=== PATIENT | female | born 1970 | race Caucasian/White ===

== ENCOUNTER → 2017-11-29 | Outpatient (CLI) | payer OTHER ==
[~2017-11-29] MED LIST: HYDR-3237 PO; MELO15TA24 PO; TIZA2TAB PO; TRAM50TA2 PO
[2017-11-29 15:10] LABS: BASOPHILS # (AUTO) 0.04 x10^3/uL (0-0.1); BASOPHILS % (AUTO) 1 % (0-1); EOSINOPHILS # (AUTO) 0.23 x10^3/uL (0-0.4); EOSINOPHILS % (AUTO) 4 % (1-7); LYMPHOCYTES # (AUTO) 1.75 x10^3/uL (1-3.4); LYMPHOCYTES % (AUTO) 29 % (22-44); MD NO; MEAN CORPUSCULAR HEMOGLOBIN 29.7 pg (27.0-34.8); MEAN CORPUSCULAR HGB CONC 33.7 g/dL (32.4-35.8); MEAN PLATELET VOLUME 9.7 fL (7.4-10.4); MONOCYTES # (AUTO) 0.43 x10^3/uL (0.2-0.8); MONOCYTES % (AUTO) 7 % (2-9); NEUTROPHILS # (AUTO) 3.54 x10^3/uL (1.8-6.8); NEUTROPHILS % (AUTO) 59 % (42-75); PLATELET COUNT 221 x10^3/uL (130-400); RED BLOOD COUNT 4.84 x10^6/uL (3.82-5.3); RED CELL DISTRIBUTION WIDTH 12.9 % (9.6-15.2)
[2017-11-29 15:21] LABS: ANION GAP 7 mmol/L (5-15); CALCIUM 9.1 mg/dL (8.5-10.1); CHLORIDE 105 mmol/L (98-107); CREATININE 0.88 mg/dL (0.55-1.02)
[2017-11-29 15:22] LABS: MICROSCOPIC NOT IND
[2017-11-29 15:29] LABS: CULTURE INDICATED? NO
== END | disposition home or self-care (01) ==
LOC: STAR 14:03
PROVIDERS: ATTEND Orthopaedic Surgery Orthopaedic Surgery of the Spine
DX: Z01.818 Encounter for other preprocedural examination (principal); M54.16 Radiculopathy, lumbar region; M48.062 Spinal stenosis, lumbar region with neurogenic claudication
CPT/HCPCS: 36415; 71020; 80048; 81003; 85025; 93005

== ENCOUNTER 2017-12-06 08:14 | Observation (INO) | payer OTHER ==
[2017-11-29 14:30] VITALS: BP 104/68
[~2017-12-06] VITALS: Ht 167.6 cm; Wt 82.5 kg
[~2017-12-06 08:14] MED LIST changes: +BUPIVACAINE/PF 0.5% ONE; +EPINEPHRINE 1 MG/ML, 1ML ONE; +LIDOCAINE/MPF 2%-EPI 1:200K, 20 ML ONE; +THROMBIN 5,000 UNIT VIAL TP ONE; +TRANEXAMIC ACID 100 MG/ML, 10ML ONE; +VANCOMYCIN 1,000 MG ONE
[2017-12-06] MEDS ORDERED: BUPIVACAINE LIPOSOME/PF INFIL ONE (08:30)
[2017-12-06] MEDS ORDERED: LACTATED RINGERS 1,000 ML IV SCH (08:46)
[2017-12-06] MEDS ORDERED: FENTANYL PF 250 MCG/5ML ONE (08:48)
[2017-12-06] MEDS ORDERED: MIDAZOLAM 1 MG/ML, 2ML ONE (08:48)
[2017-12-06 09:03] LABS: HCG UR SG 1.015 (1.003-1.030)
[2017-12-06] MEDS ORDERED: DEXAMETHASONE 4 MG/ML, 1ML ONE ×4 (10:15→14:07)
[2017-12-06] MEDS ORDERED: CEFAZOLIN 1,000 MG ONE ×2 (10:34)
[2017-12-06] MEDS ORDERED: PROPOFOL 10 MG/ML, 20ML ONE ×3 (11:08→12:37)
[2017-12-06] MEDS ORDERED: ROCURONIUM 10 MG/ML,10ML ONE (11:18)
[2017-12-06] MEDS ORDERED: ONDANSETRON 2MG/ML, 2ML ONE (11:18)
[2017-12-06] MEDS ORDERED: DIAZEPAM 5 MG/ML, 2ML IVPush PRN (11:30)
[2017-12-06] MEDS ORDERED: hydrALAzine 20 MG/ML, 1ML IV PRN (11:30)
[2017-12-06] MEDS ORDERED: OXYcodone 5 MG/5 ML ORAL.SOL UDC PO PRN (11:30)
[2017-12-06] MEDS ORDERED: ONDANSETRON 2MG/ML, 2ML IVPush PRN ×2 (11:30→14:00)
[2017-12-06] MEDS ORDERED: ACETAMINOPHEN 325 MG TABLET PO PRN (11:30)
[2017-12-06] MEDS ORDERED: HYDROmorphone 1 MG/ML, 1ML IV PRN ×2 (11:30→14:00)
[2017-12-06] MEDS ORDERED: PROMETHAZINE 25 MG/ML, 1ML IV PRN (11:30)
[2017-12-06] MEDS ORDERED: LABETALOL 5MG/ML, 20ML IV PRN (11:30)
[2017-12-06] MEDS ORDERED: HYDROmorphone 2 MG/ML, 1ML ONE ×3 (12:54→19:27)
[2017-12-06] MEDS ORDERED: TRANEXAMIC ACID 100 MG/ML, 10ML ONE (13:00)
[2017-12-06] MEDS ORDERED: OXYcodone 5 MG/5 ML ORAL.SOL UDC ONE (13:29)
[2017-12-06] MEDS ORDERED: ACETAMINOPHEN 650 MG/20.3 ML UDC ONE (13:29)
[2017-12-06] MEDS ORDERED: FENTANYL PF 100 MCG/2ML ONE (13:29)
[2017-12-06] MEDS: FENTANYL PF 100 MCG/2ML IV PRN ×2 (13:38→14:05)
[2017-12-06] MEDS ORDERED: DIAZEPAM 5 MG/ML, 10ML VIAL IV PRN (14:00)
[2017-12-06] MEDS ORDERED: OXYcodone/APAP 5/325MG TABLET PO PRN (14:00)
[2017-12-06 19:34] VITALS: BP 118/70
[2017-12-06] MEDS: OXYcodone/APAP 5/325MG TABLET PO PRN (21:37)
[2017-12-07 00:03] VITALS: BP 101/62
[2017-12-07] MEDS: OXYcodone/APAP 5/325MG TABLET PO PRN ×3 (01:44→09:19)
[2017-12-07 04:36] VITALS: BP 97/58
[2017-12-07 07:51] VITALS: BP 106/65
[2017-12-07] MEDS ORDERED: OXYC-302 PO (10:25)
== END 2017-12-07 11:35 | disposition home or self-care (01) ==
LOC: INTOOBSV 08:14 → ORIP 08:14 → 4NOR 14:37
PROVIDERS: ADMIT Orthopaedic Surgery Orthopaedic Surgery of the Spine; ATTEND Orthopaedic Surgery Orthopaedic Surgery of the Spine
DX: M47.896 Other spondylosis, lumbar region (principal); M51.36 Other intervertebral disc degeneration, lumbar region
CPT/HCPCS: 20931; 20938; 22630; 22840; 22853; 72100; 81025; 96374; C1713; C1762; C1767; C9290; G0378; J0690; J1100; J1170; J2250; J2405; J2704; J3010; J3360; J3370; J3490; J7120; J0171